=== PATIENT | male | born 1990 | race Hispanic/Latino ===

== ENCOUNTER 2016-10-10 00:08 | Emergency (ER) | payer OTHER ==
[~2016-10-10] VITALS: Ht 172.7 cm; Wt 100.0 kg
[2016-10-10 00:11] VITALS: BP 163/107; PULSE 85; RESP 16; O2SAT 100
--- NOTE | 2016-10-10 00:17 | ED.REPORT ---
HPI-Dyspnea / Wheezing Date of Service Oct 10, 2016 ED Provider: Dr. Marc Roldan MD A 26 year old male with a history of asthma presents to the ED complaining of shortness of breath that began just prior to arrival. Patient believed he was experiencing an asthma attack and used his inhaler and nebulizer with no relief. He also reports experiencing intermittent episodes of chest tightness that began one week ago. THe patient's asthma is typically triggered by seasonal allergies. Recent associated symptoms include wheezing, nasal congestion and headache. He denies any dyspnea this morning. Nursing Notes Stated Complaint: ASTHMA ATTACK Chief Complaint: Respiratory Complaints Nursing Notes Reviewed: Yes Allergies: Coded Allergies: No Known Allergies (Verified Allergy, Unknown, 10/10/16) General Time Seen by MD: 00:17 Chief Complaint Shortness of breath Hx Obtained From: Patient Arrived By: Walk-in Sudden in Onset?: No Onset Occurred: Just prior to arrival Context of Onset: Asthma attack Symptom Duration: Since onset Location: : Chest left: Chest right Quality: Painful (tighness) Radiation: : Does not radiate Severity: Current: No pain currently Severity: Maximum: Moderate Associated with: Reports: Nasal congestion Pertinent Negative: Pt denies other symptoms Recent Healthcare: No recent doctor visit, No recent hospitalization Past Medical History Past Medical History Asthma Past Surgical History None reported. Smoking History Never Smoker Social History Other Social History: Good social support, Local resident Occupation [employer] Employee Ambulatory Status Independent Review of Systems Ears / Nose / Throat: Reports: Nasal congestion Respiratory: Reports: Shortness of breath, Wheezing Cardiovascular: Reports: Chest pain Complete sys rev & neg: except as marked. Neurologic: Reports: Headache Physical Exam Initial Vital Signs Vital Signs (First) Date Time Temp Pulse Resp B/P Pulse Ox O2 Delivery O2 Flow Rate FiO2 10/10/16 00:11 36.5 85 16 163/107 100 Room Air Initial VS: Reviewed Head / Eyes: Atraumatic, Normocephalic, PERRL Extremities: Vascular intact, Neuro intact, No swelling, No tenderness Skin: Warm, Dry, No cyanosis Neurologic: Alert, Oriented, Nonfocal Psychiatric: Mood/affect normal, Behavior normal, Normal thought content General/Constitutional: Awake, Alert, No acute distress, Well appearing, Well developed Neck: Atraumatic, Supple Respiratory / Chest: Atraumatic, Breath sounds NL, Breath sounds = bilat, No respiratory distress, No wheezing, No retractions Cardiovascular: Heart rate NL, Regular rhythm, Heart sounds NL Interpretation & Diagnostics ECG Interpretation ECG Interpretation: Sinus Rhythm Rate 79 Time: 12:23 Interpreted by: ED physician X-Ray Chest Interpretation Chest Xray Interpretation: IMPRESSION: No acute disease Interpretation / Wet Read by: Wet read ED physician Re-Eval/Medical Decision Re-Evaluation/Progress : Time of Eval: 01:20 Patient Status: Condition improved Re-Evaluation/Progress Note: Pt is informed of his results and the plan to discharge with follow up. He reports that his symptoms have improved. Counseled Regarding: Diagnosis, Lab results, Need for follow-up, When/why to return to ED Discharge & Departure Impression: Primary Impression: Chest pain Chest pain type: unspecified Qualified Code: R07.9 - Chest pain, unspecified Disposition: Home Discharge Condition All VS Reviewed: Yes Condition: Improved Patient Instructions: Chest Pain (ED) Additional Instructions: Thank you for trusting us with your care this evening. Your emergency department results including EKG and chest X-ray are reassuring that there is no dangerous cause for concern at this time. I recommend that you schedule a follow-up appointment with your primary care physician in the next 1-2 days for a recheck. Take 800mg of ibuprofen every 8 hours as needed for pain. No evidence of dangerous or uncontrolled asthma at this time. Please return to the emergency department for any new or worsening conditions including any difficulty breathing, worsening chest pain, nausea, vomiting, high fever or shaking chills. Referrals: [facility] (PCP) [facility] Scribe Attestation Portions of this note were transcribed by Maribeth Garcia. I, Dr. Roldan personally performed the history, physical exam and medical decision-making; I reviewed and confirmed the accuracy of the information in the transcribed note. Signed by: Demetrio Magana, 10/10/16 0122. Marc Roldan MD Oct 10, 2016 00:17 MARIBETH GARCIA Oct 10, 2016 00:26
[2016-10-10] MEDS ORDERED: Albuterol 2.5 mg/3 mL Inhalation Solution NEB ONE (00:20)
[2016-10-10 01:38] VITALS: BP 135/86; PULSE 90; RESP 21; O2SAT 94
--- NOTE | 2016-10-10 09:53 | DRSVH ---
PROCEDURE: X-RAY CHEST, TWO VIEWS ([id number]) INDICATIONS: chest pain TECHNIQUE: 2 views of the chest were acquired. COMPARISON: [facility], CR, XR CHEST 2VW, 10/30/2015, 10:55. FINDINGS: Surgical changes and devices: None. Lungs and pleura: No pleural effusions or pneumothorax. Lungs are clear. Mediastinum: Mediastinal contours are normal. Heart size is normal. Bones and chest wall: No suspicious bony abnormalities. Soft tissues appear unremarkable. IMPRESSION: No acute cardiopulmonary disease. Dictated by: Frederic Solano [facility] Interpreted: Diego Rausch MD on 10/10/2016 at 9:52 Transcribed by: CR on 10/10/2016 at 9:53 Approved by: Diego Rausch M.D. on 10/11/2016 at 8:08
== END 2016-10-10 01:39 | disposition home or self-care (01) ==
LOC: SED 00:08
DX: R07.9 Chest pain, unspecified (principal); R09.81 Nasal congestion; R51 Headache; J45.909 Unspecified asthma, uncomplicated; Z79.51 Long term (current) use of inhaled steroids